=== PATIENT | male | born 1965 | race American Indian/Alaskan Native ===

== ENCOUNTER 2016-11-27 18:52 | Inpatient (IN) | payer OTHER ==
[~2016-11-27] VITALS: Ht 182.9 cm; Wt 87.4 kg
[~2016-11-27 18:52] MED LIST: FUROSEMIDE20 MG PO; FUROSEMIDE40 MG PO; HUMALOG100 UNITS/ SUB-Q; LISINOPRIL-HCT1 EACH PO; LOVASTATIN20 MG PO; MAG-OXIDE400 MG PO; METFORMIN HCL500 MG PO; METOPROLOL TART25 MG PO; MIDODRINE HCL10 MG PO; NITROGLYCERIN0.4 MG SL; POTASSIUM CHLO20 ME1 PO; SODIUM BICARBO650 MG PO; SPIRONOLACTONE100 MG PO; SPIRONOLACTONE50 MG PO; VIAGRA50 MG PO; XIFAXAN550 MG PO
--- NOTE | 2016-11-28 05:34 | NUR ---
PT AWAKE VS SLEEPING, A/O X3, APPEARS TIRED, SLEPT INTERMITTENTLY. VS WNL, AFEBRILE, RA, LUNGS CLEAR DIMINISHED, LACTIC ACID IMPROVING, CLARIFIED NSS MVI TO INFUSE INCLUDING WHEN BANANA BAG IS INFUSING, GUIAC NEGATIVE. ABD ASCITES REMARKABLE, VESSELS VISIBLE AND UMBILICAL HERNIA. FC IRRIGATED WITH 30 ML NSS AND IS DRAINING DARK, MAN, CLEAR URINE, 400 ML SINCE 0. PT TOLERATING DISCOMFORTS, ABD CRAMPS PERIODICALLY. LARGE, BROWN, FORMED BM IN BSC, 1 PERSON ASSIST, PT REQUIRES WALKER TO STAND AND MANUEVER TO BSC, USES CALL LIGHT. PT LIVES WITH A WOMAN WHO WILL BE BRINGING HIS MEDS IN A.M., INCLUDING XIFAXAN, CEFEPIME AND FLAGYL IV SCHEDULED.
--- NOTE | 2016-11-28 06:34 | NUR ---
DR BLACKWOOD CALLED AND NOTIFIED OF CRITICAL VALUES, TROPONIN AND LACTIC ACID
--- NOTE | 2016-11-28 06:51 | EKG ---
[facility] [address] [facility] [place] [address] Signed Supraventricular tachycardia Inferior infarct , age undetermined ST \T\ T wave abnormality, consider anterolateral ischemia Abnormal ECG When compared with ECG of 14-JUN-2016 18:14, PA interval has decreased Non-specific change in ST segment in Inferior leads T wave inversion now evident in Inferior leads T wave inversion now evident in Lateral leads Confirmed by KATE BLACKWOOD MD ([id number]) on 11/28/2016 6:51:21 AM Electronically Signed By: KATE BLACKWOOD MD 11/28/16 0651 PATIENT NAME: YAMILA HAUSER Electrocardiogram DATE OF : 63 PHYSICIAN: KATE BLACKWOOD MD REPORT #: [id number] REPORT IS CONFIDENTIAL AND NOT TO BE RELEASED WITHOUT AUTHORIZATION
--- NOTE | 2016-11-28 07:38 | NUR ---
CRITICAL LAB VALUE OF TROPONIN 0.311 AND LACTIC ACID DECREASED TO 3.7.
--- NOTE | 2016-11-28 07:56 | NUR ---
IV SITES INTACT, NO REDNESS OR SWELLING NOTED, PT DENIES PAIN AT EITHER SITE. PT DENIES SOB. PT APPEARS SOMULANT, IS SLOW TO RESPOND TO DIRECT QUESTIONS.
--- NOTE | 2016-11-28 09:01 | NUR ---
PT UP TO BEDSIDE COMMODE WITH ONE PERSON ASSIST AND WALKER. PT HAD EXTRA LARGE LOOSE BM. PT ASSISTED BACK TO BED. PT STATES "I CAN'T EVEN WIPE MYSELF, I'M SO WEAK". PT APPEARS WITHDRAWN.
--- NOTE | 2016-11-28 09:18 | NUR ---
PT STOOL GUAIAC POSITIVE. HAS BEEN NOTIFIED. NO FURTHER ORDERS AT THIS TIME.
--- NOTE | 2016-11-28 10:07 | NUR ---
IV SITE IN RT HAND DC'D DUE TO LEAKING AND SLOW FLUSH.
--- NOTE | 2016-11-28 10:26 | NUR ---
PT IN SHOWER WITH FULL ASSIST FROM POWER SWITCHBOARD OPERATOR. PT WHEELED TO SHOWER IN CHAIR.
--- NOTE | 2016-11-28 10:53 | NUR ---
PT BACK TO BED FROM SHOWER, PT ABLE TO BRUSH TEETH WITH ASSISTANCE. PT REQUIRES TWO PERSON ASSIST BACK TO BED W/O WALKER.
--- NOTE | 2016-11-28 10:57 | NUR ---
PT STATES HE FEELS BETTER TODAY THAN HE DID YESTERDAY.
--- NOTE | 2016-11-28 11:20 | NUR ---
20 G IV SITE STARTED IN PT RT FORARM, PT CHERRI WELL.
--- NOTE | 2016-11-28 12:35 | NUR ---
PT REPOSITIONED UP IN BED FOR COMFORT. IV SITES INTACT NO SWELLING OR REDNESS NOTED, PT DENIES PAIN WITH INFUSION. PT SITTING UP IN BED EATING CLEAR LIQUID TRAY.
[2016-11-28] MEDS ORDERED: CONSTULOSE10 GM/15 M PO (12:47)
[2016-11-28] MEDS ORDERED: LEVEMIR FL100 UNIT/2 INJ (12:47)
[2016-11-28] MEDS ORDERED: PANTOPRAZOLE SO40 MG PO (12:47)
--- NOTE | 2016-11-28 12:52 | NUR ---
MED REC COMPLETE
--- NOTE | 2016-11-28 13:45 | NUR ---
PT TALKING ON PHONE TO HIS DAUGHTER. WILL CHECK BACK LATER
--- NOTE | 2016-11-28 14:10 | NUR ---
CALLED TO REPORT PT CONTINUED LOW URINE OUTPUT. ORDER GIVEN TO IRRIGATE JARAMILLO.
--- NOTE | 2016-11-28 14:30 | NUR ---
JARAMILLO IRRIGATED WITH 30 ML NS. PT INCONTINENT OF LARGE AMOUNT OF LIQUID STOOL. ENTIRE BED CHANGE AND GOWN CHANGE REQUIRED.
--- NOTE | 2016-11-28 14:45 | NUR ---
IV FLUIDS CHANGED FROM 200 ML/HR TO 75 ML/HR PER UPDATED ORDER.
--- NOTE | 2016-11-28 16:15 | NUR ---
IV SITES INTACT, NO REDNESS OR SWELLING NOTED, FLUIDS INFUSING EASILY. PT AWAKE AND ALERT, QUITE LAYING IN BED WATCHING TV. PT DENIES SOB, PAIN AND NAUSEA AT THIS TIME. PT GIVEN INCENTIVE SPIROMETER AND EDUCATED ON APPROPRIATE USE.
--- NOTE | 2016-11-28 17:55 | NUR ---
GAVE PT 5 UNITS INSULIN FOR COVERAGE OF BLOOD GLUCOSE OF 228. PT CHERRI WELL.
--- NOTE | 2016-11-28 18:32 | NUR ---
PT SITTING UP IN BED DRINKING A CLEAR ENSURE.
--- NOTE | 2016-11-28 19:36 | NUR ---
PT'S UO DECREASED TODAY, REPORTED RESULTS TO DR. BLACKWOOD, PRESENT IN UNIT.
--- NOTE | 2016-11-28 20:28 | NUR ---
1940 - PT SLEEPING, ROUSES EASILY, NO ACUTE DISTRESS.
--- NOTE | 2016-11-28 22:12 | NUR ---
PT HAS PAIN R/T ASCITES PRESSURE, DOES NOT GIVE A PAIN SCORE, DESCRIBES HEARTBURN, / NOC DESCRIBED INTERMITTENT CRAMP WHICH PT CONTINUES TO HAVE. PROTONIX GIVEN IV A.M., LEADS VIEWED ON MONITOR, QRS .10-.11, PT SAID HE HAS HAD THE PAIN FOR 2 DAYS, ALERTED DR. BLACKWOOD. ASCITES.
--- NOTE | 2016-11-29 01:33 | NUR ---
PT SLEEPING, CEFEPIME INFUSED, BRIEF CHECK LARGE GREEN LIQUID STOOL. GUIAC NEGATIVE. PT HAS ABDOOMINAL PAIN INTERMITTENT, DOES NOT GIVE A PAIN NUMBER, ABLE TO SLEEP, DOING OK PER CONVERSATION.
--- NOTE | 2016-11-29 04:15 | NUR ---
PT SLEEPING FOR SEVERAL HOURS, VS WNL, UO MAN MEDIUM/DARK, DECREASED, DR. BLACKWOOD AWARE PER NURSE'S NOTE AT START OF SHIFT. LOOSE STOOLS, INCONTINENT, GUIAC NEGATIVE. PT DOES NOT WANT LACTULOSE EVENING DOSE. LOW GRADE TEMP 99.4.
--- NOTE | 2016-11-29 07:17 | NUR ---
PT SLEPT, AWAKE, VS WNL, ORDERED BREAKFAST.
--- NOTE | 2016-11-29 08:55 | NUR ---
BOTH IV SITES INTACT, NO REDNESS OR SWELLING NOTE, PT DENIES PAIN WITH FLUSH OR INFUSION. PT DENIES PAIN, NAUSEA, AND SOB IN GENERAL. DIET ADVANCED TO REGULAR, PT EXCITED TO EAT "ANYTHING BESIDES JELLO AND BROTH". PT HAS A FLAT AFFECT, APPEARS TO BE NORMAL FOR HIM, INTERACTS WELL. PT IS COOPERATIVE AND POLITE. VITALS WNL AT THIS TIME. URINE OUTPUT REMAINS LOW, IS AWARE. LASIX ORDERED FOR THIS AM.
--- NOTE | 2016-11-29 11:07 | NUR ---
PT LAYING IN BED WATCHING TV AWAKE AND ALERT X4. PT DENIES OTHER NEEDS AT THIS TIME. CALL LIGHT WITHIN REACH. PT VITALS WNL.
--- NOTE | 2016-11-29 13:26 | NUR ---
PT UP TO SHOWER IN SHOWER CHAIR. PT ABLE TO STAND AND PIVOT TO GET IN AND OUT OF BED. PT ABLE TO ASSIST WITH CLEANING HIM SELF IN THE SHOWER. PT HAIR SHAMPOOED TWICE, MEDIMUM SIZE SCAB LIKE CLUMPS OF SKIN ABLE TO BE COMBED OFF OF SCALP. PT DENIES PAIN WITH SKIN CHUNKS COMING OFF, PT DENIES ANY PAIN ON SCALP. PT INCONTINENT OF LIQUID STOOL DURING SHOWER. PT DRIED, NEW SOCKS AND GOWN PLACED. BED LINNENS CHANGED. PT BACK TO BED. PT SHAVING HIM SELF IN BED WITH RAZORS AND SHAVING CREAM.
--- NOTE | 2016-11-29 13:42 | NUR ---
iv sites intact, no redness or swelling noted, both sites flush easily, pt denies pain at either site.
--- NOTE | 2016-11-29 14:44 | NUR ---
FULL REPORT GIVEN TO MARGARET SHIN ON MED/SURG FLOOR, ALL QUESTIONS ANSWERED, PT TO BE TRANSFERED TO ROOM 123 .
--- NOTE | 2016-11-29 19:20 | NUR ---
BEDSIDE REPORT RECEIVED FROM OFFGOING NURSE. PT LYING IN BED WITH EYES CLOSED, WAKES EASILY. PT DENIES NEEDS AT THIS TIME. CALL LIGHT WITHIN REACH.
--- NOTE | 2016-11-29 21:30 | NUR ---
PT ASSESSMENT COMPLETED. PT RATES PAIN 8/10 TO ABD. REPORTS MILD SOB. SA02 99%, LUNGS CLEAR/DIM IN BASES. ABD SEVERLY DISTENDED. BT'S ACTIVE. PT REPORTS TENDERNESS UPON ABD PALPATION. PT DECLINES TO TAKE LACTULOSE. STATES "IT IS TOO LATE".
--- NOTE | 2016-11-29 23:00 | NUR ---
HOSPITALIST NOTIFIED OF LOW URINE OUTPUT, INCREASED PAIN, AND SOB. NO NEW ORDERS RECEIVED AT THIS TIME. PT LYING IN BED WITH EYES CLOSED. WAKES EASILY DUE TO IV ALARM. PT REPORTS THAT PAIN CONTINUES 8-11/30. PT DENIES NEEDS AT THIS TIME. CALL LIGHT WITHIN REACH.
--- NOTE | 2016-11-30 00:31 | NUR ---
PT INQUIRING ABOUT PAIN MEDICATION, EXPLAINED TO PT THAT MD DID NOT ORDER PAIN MEDICATION, BUT HOPES PT WILL HAVE PARACENTESIS TOMORROW PER EARLIER CONVERSATION WITH MD. PT STATES AGREEMENT. DENIES FURTHER NEEDS AT THIS TIME. CALL LIGHT WITHIN REACH.
--- NOTE | 2016-11-30 01:37 | NUR ---
PT RESTING WITH EYES CLOSED. RESPIRATIONS EVEN AND UNLABORED. PT DOES NOT WAKE UP TO IV PUMP ALARMING OR SUPERINTENDENT DRILLING AND PRODUCTION ENTERING ROOM. CALL LIGHT WITHIN PT REACH.
--- NOTE | 2016-11-30 02:20 | NUR ---
PT ASSESSMENT COMPLETE. PT RESTING WITH EYES CLOSED. WAKES EASILY. PT RATES PAIN 8-9/10, UNCHANGED FROM PREVIOUS. CONTINUES TO REPORT SOB, LUNG SOUNDS CLEAR THROUGHOUT. ABD SEVERLY DISTENDED AND FIRM, REMAINS TENDER TO PALPATION. BT'S ACTIVE. PT DENIES FURTHER NEEDS. CALL LIGHT WITHIN REACH.
--- NOTE | 2016-11-30 04:54 | NUR ---
PT RESTING IN BED WITH EYES CLOSED. RESPIRATIONS EVEN AND UNLABORED. PT APPEARS TO BE SLEEPING. CALL LIGHT WITHIN REACH.
--- NOTE | 2016-11-30 05:47 | NUR ---
PT RESTING OFF AND ON THIS SHIFT. NOTIFIED OF 10/30 PAIN, NO NEW ORDERS RECEIVED. ABD SEVERELY DISTENDED. UMBILICAL HERNIA PROTUDING. BT'S ACTIVE. ABD TENDER. PT REPORTS SLIGHT SOB. TELE # 1O, SR, HR 90'S. JARAMILLO CATH WITH LOW UO, NOTIFIED. SKIN JAUNDICED. PT REFUSED EVENING LACTULOSE. BM X 3 YESTERDAY. POSSIBLE PARACENTESIS TODAY. IV SL.
--- NOTE | 2016-11-30 06:44 | NUR ---
PT LYING IN AWAKE IN BED. REPORTS THAT PAIN IS UNCHANGED, CONTINUES AT 8/10. URINE OUTPUT CONTINUES TO BE LOW PREVIOUSLY REPORT TO MD THIS SHIFT. PT DENIES NEEDS AT THIS TIME. CALL LIGHT WITHIN REACH.
--- NOTE | 2016-11-30 07:30 | NUR ---
PT RESTING IN BED ALERT AND ORIENTED. BEDSIDE REPORT.
--- NOTE | 2016-11-30 08:45 | NUR ---
PT HAS FLAT AFFECT, ANSWERS QUESTIONS APPROPRIATLY, DOES NOT ENGAGE IN CONVERSATION. HE REPORTS PAIN 8-9/10, TRAMADOL ADMINISTERED. COOPERATIVE WITH PLAN OF CARE
--- NOTE | 2016-11-30 12:15 | OR ---
[facility] [address] [place], [place] [address] Signed DATE OF PROCEDURE: 11/27/16 PREOPERATIVE DIAGNOSES Fever, elevated white count, cirrhosis with ascites, assess for spontaneous bacterial peritonitis. POSTOPERATIVE DIAGNOSES Fever, elevated white count, cirrhosis with ascites, assess for spontaneous bacterial peritonitis. PROCEDURE: Right lateral abdominal wall paracentesis. SURGEON: aCnelo Ayala MD ANESTHESIA: Lidocaine 1% with epinephrine. INDICATION A 51-year-old man with end-stage liver disease and profound ascites with elevated white count, fever, and concerns for possible spontaneous bacterial peritonitis. He understands risks of paracentesis for diagnosis including but not limited to bleeding, infection, bowel injury, and other unforeseen complications. Understanding this, he wished to proceed. FINDINGS Somewhat turbid yellow ascites fluid was obtained from the right lower abdominal area. SPECIMEN: Sent for Gram stain and culture. PROCEDURE IN DETAIL In the supine position, right lateral lower abdominal wall was prepared with a Chlorhexidine solution and draped sterilely. A 1% Lidocaine with epinephrine was injected locally. Using a paracentesis needle, the peritoneal cavity was carefully entered allowing for egress of ascites fluid which was under pressure. A 60 mL syringe of fluid was obtained. It was somewhat turbid, it was not bloody. The needle was removed and a Band-Aid was applied. He tolerated procedure well. Canelo Ayala MD Electronically Signed By: CANELO AYALA MD 11/30/16 1215 PATIENT NAME: YAMILA HAUSER OPERATIVE REPORT DATE OF : 63 PHYSICIAN: CANELO AYALA MD REPORT #: [id number] REPORT IS CONFIDENTIAL AND NOT TO BE RELEASED WITHOUT AUTHORIZATION [facility] [address] [place], [place] [address] Signed JOLANTA/Aishwarya /[id number] cc: MD Shahid Moran MD Kelly Pridgen, MD Electronically Signed By: CANELO AYALA MD 11/30/16 1215 PATIENT NAME: YAMILA HAUSER OPERATIVE REPORT DATE OF : 63 PHYSICIAN: CANELO AYALA MD REPORT #: [id number] REPORT IS CONFIDENTIAL AND NOT TO BE RELEASED WITHOUT AUTHORIZATION
--- NOTE | 2016-11-30 12:15 | CONS ---
[facility] [address] [facility] [place], [place] [address] Signed DATE OF CONSULTATION: 11/27/16 CONSULTING PHYSICIAN: Canelo Ayala MD REQUESTING PHYSICIAN: Dr. Caldwell and Orin Garland. PROBLEM Probable infection, known end-stage liver disease with ascites, consideration for spontaneous bacterial peritonitis. HISTORY OF PRESENT ILLNESS This 51-year-old [place] man has end-stage liver disease and is known to me from the past having undergone paracentesis. He is known to have an umbilical hernia without known complication or symptoms and presented to the emergency room feeling poorly. He is noted to have elevated white count and temperature and thought to have infection of unknown source. A CT scan of the abdomen was performed which showed considerable amount of ascites, no sign of free air or other particular problem. The patient has not been delirious and is of clear mind. He says he has vague abdominal pain, but no particular other complaint. He does not have a persistent cough or other similar problem. Consideration has been made for paracentesis for diagnosis to assess for spontaneous bacterial peritonitis and I am consulted on that basis. PHYSICAL EXAMINATION GENERAL: A deeply jaundiced [place] man who is alert and oriented. He shows no sign of delirium. He has no asterixis. HEENT: Trachea is midline. He has no hoarseness. There is no jugular venous distention. CHEST: Shows no evidence of tachypnea. HEART: Shows no tachycardia. ABDOMEN: Markedly distended consistent with ascites. There is a sizable umbilical hernia without erosion or leakage. EXTREMITIES: Show wasting, but no peripheral edema. LABORATORY DATA: Shows a protime elevated at 2.4. ASSESSMENT AND PLAN The patient has ascites and reasonably high probability of spontaneous bacterial peritonitis. Although, his protime is elevated, I think he can safely undergo paracentesis for diagnosis. He is not symptomatic from his ascites necessarily and therefore large volume paracentesis is not really indicated. I have conferred with Dr. Garland and Dr. Caldwell on this, they wished that he undergo paracentesis if possible. Electronically Signed By: CANELO AYALA MD 11/30/16 1215 PATIENT NAME: YAMILA HAUSER CONSULTATION DATE OF : 63 PHYSICIAN: CANELO AYALA MD REPORT #: [id number] REPORT IS CONFIDENTIAL AND NOT TO BE RELEASED WITHOUT AUTHORIZATION [facility] [address] [place] [id number] Signed I discussed with the patient the risks of bleeding, infection, bowel injury, and other unforeseen complications related to paracentesis. He understands and wished to proceed. MD JOLANTA Stovall/Aishwarya /[id number] cc: Orin Garland MD [facility] Electronically Signed By: CANELO AYALA MD 11/30/16 1215 PATIENT NAME: YAMILA HAUSER CONSULTATION DATE OF : 63 PHYSICIAN: CANELO AYALA MD REPORT #: [id number] REPORT IS CONFIDENTIAL AND NOT TO BE RELEASED WITHOUT AUTHORIZATION
--- NOTE | 2016-11-30 12:37 | NUR ---
PT CONSUMED ALL OF SMALL PLATE OF FRUIT AND HALF ENSURE. HE REPORTS FEELING PAINFUL AND UNCOMFORTABLE DUE TO ACSITES, PT REPORTS TRAMADOL ADMINISTERED EARILER WAS HELPFUL. PT REUQEST TO KNOW WHEN HE MAY HAVE PROCEDURE TO DRAIN FLUIDS OFF ABD. RN CALLED MD AND RELAYED INFORMATIN THAT THE MD HOPES IT WILL BE THIS AFTERNOON, PER SURGEONS SCHEDULE.
--- NOTE | 2016-11-30 15:22 | NUR ---
Patient is doing "okay". Resting, said he did not need anything.
--- NOTE | 2016-11-30 17:20 | NUR ---
CALLED TO UPDATE HER ON PT CONTINUED PAIN OF 8-10/10 DESPITE ULTRAM ADMINISTRATION. UPDATED HER TO HIS REACTION WHEN HE WAS NOTIFIED THAT PROCEDURE WILL LIKELY BE IN THE MORNING, PT WAS HOPEING FOR THE PROCEDURE TODAY. HE IS ANTICIPATING SOME RELIEF FROM THE PAIN. PLAN IS FOR TO SEE PT TOMORROW.
--- NOTE | 2016-11-30 17:31 | NUR ---
PT HAS NOT WANTED TO GET OUT OF BED OVER SHIFT, REFUSED SHOWER. ULTRAM FOR PAIN WAS ORDERED THIS AM, PT HAS HAD TWO DOSES. HE HAS BEEN ALERT AND ORIENTED OVER SHIFT, ONE LARGE LIQUID BM, INCONT. IN BED. PT ABD. SEVERELY DISTENDED, PLAN FOR PARACENTESIS FOR TOMORROW WITH . URINE OUT HAS BEEN LOW, AWARE,JARAMILLO IN PLACE. PT HAS HAD SMALL AMOUNTS OF NUTRITIONAL INTAKE WELL ENSURES WITH MEALS. HE HAS FLAT AFFECT/STOIC.
--- NOTE | 2016-11-30 19:25 | NUR ---
RECEIVED REPORT FROM RN. PATIENT HAS NO NEEDS AT THIS TIME.
--- NOTE | 2016-11-30 20:13 | NUR ---
EVENING MEDICATION GIVEN AND ASSESSMENT DONE. PATIENT HAS NO NEEDS AT THIS TIME. HE IS HOPEFUL ABOUT PARACENTESIS TOMORROW.
--- NOTE | 2016-12-01 01:34 | NUR ---
PATIENT GIVEN MORE WATER. HAS NO OTHER NEEDS AT THIS TIME.
--- NOTE | 2016-12-01 03:07 | NUR ---
PATIENT REPORTS 6/10 ABD PAIN. PAIN MEDICATION GIVEN PER EMAR. NO OTHER NEEDS AT THIS TIME.
--- NOTE | 2016-12-01 04:42 | NUR ---
PATIENT SITTING UP IN BED WATCHING TV. DENIES NEEDS AT THIS TIME.
--- NOTE | 2016-12-01 06:07 | NUR ---
PATIENT HAS BEEN SLEEPING THROUGHOUT SHIFT. VSS, NO COMPLAINTS OF NAUSEA. PATIENT REPORTED 8/10 ABD PAIN, PAIN MEDICATION GIVEN PER EMAR. PATIENT STATED THAT HE HAD ADEQUATE PAIN RELIEF. LOW URINE OUTPUT NOTED AT 200 ML THROUGHOUT SHIFT: DR. BLACKWOOD HAS BEEN MADE AWARE OF THE LOW URINE OUTPUT. THERE ARE NO NEW ORDERS AT THIS TIME. NO OTHER ACUTE CHANGES FROM BEGINNING OF SHIFT ASSESSMENT. INTENTIONAL ROUNDING DONE WITH ALL PATIENT'S NEEDS MET.
--- NOTE | 2016-12-01 06:16 | NUR ---
SPOKE WITH DR. BLACKWOOD ABOUT LOW URINE OUTPUT. NO NEW ORDERS AT THIS TIME.
--- NOTE | 2016-12-01 08:15 | NUR ---
PT AWAKE IN BED. VERY FLAT AFFECT, PT NOT VERY TALKATIVE BUT RESPONDS APPROPRIATELY TO QUESTIONS. DENIES PAIN OR NAUSEA AT THIS TIME. PT EATING BREAKFAST, CHERRI WELL ALTHOUGH STATES HE DOESNT HAVE MUCH OF AN APPETITE. IV FLUSHES WELL. CALL LIGHT WITHIN REACH.
--- NOTE | 2016-12-01 11:33 | NUR ---
PT RESTING IN BED, EYES CLOSED, RESP EVEN AND UNLABORED.
--- NOTE | 2016-12-01 13:00 | NUR ---
PT RECIEVED THORACENTESIS BY DR. AYALA, 4L OF CLEAR YELLOW DRAINAGE OBTAINED. PT CHERRI WELL. ABD NOTABLY DECREASED IN SIZE. PT REPORTS FEELING MUCH BETTER AND WOULD LIKE TO ORDER SOMETHING FOR LUNCH. DENIES PAIN OR OTHER CONCERNS AT THIS TIME. LINENS AND ATTENDS CHANGE. CALL LIGHT WITHIN REACH.
--- NOTE | 2016-12-01 14:22 | NUR ---
I ORDERED PATIENT ANOTHER ICE TEA.
--- NOTE | 2016-12-01 15:28 | NUR ---
PT AMB 2PERSON WITH WALKER IN HALLWAY. CURRENTLY SITTING UP IN CHAIR WATCHING TV. ATE ALL OF LUNCH. DENIES PAIN OR OTHER CONCERNS. DRESSING FROM PARACENTESIS SITE REDRESSED IT WAS COMPLETETELY SATURATED WITH LIGHT YELLOW DRAINAGE. REDRESSED WITH 4X4 GAUZE AND MICROFOAM TAPE. CALL LIGHT WITHIN REACH.
--- NOTE | 2016-12-01 15:47 | NUR ---
PT SITTING UP IN RECLINER. MORE ENGAGED IN CONVERSATION TODAY. HE REPORTS PAIN 5/10. TRAMADOL 50MG ADMINISTERED PO PRN.
--- NOTE | 2016-12-01 15:53 | NUR ---
PT SITTING UP IN BED, NOT VERY ALERT OR ORIENTED. DID NOT SEEM TO WANT ME TO CONNECT WITH HIM-STATED HE WAS TIRED. I HONORED HIS REQUEST, WILL CHECK BACK AGAIN
--- NOTE | 2016-12-01 17:48 | NUR ---
PT HAD PARACENTESIS THIS AFTERNOON 4L REMOVED FROM ABDOMEN. PT REPORTS HE FEELS MUCH BETTER POST PROCEDURE. HE HAS BEEN ADVANCED TO REGULAR DIET 2 GRAM SODIUM RESTRICITON. HE HAS BEEN UP WITH PHYSICAL THERAPY TODAY TWO PERSON ASSIST WITH FWW, PT WAS VERY UNSTEADY. HE HAS BEEN MORE ENGAGED IN CONVERSATION SINCE PARACENTESIS WELL. ULTRAM 5OMG PO PRN GIVEN ONCE THIS AFTERNOON FOR ABD. PAIN.
--- NOTE | 2016-12-01 19:42 | NUR ---
RECIEVED REPORT FROM DAY SHIFT NURSE. PT RESTING IN BED. DIET SODA DELIVERED AND WARM BLANKET. PT DENIES FURTHER NEEDS. CALL POON IN REACH.
--- NOTE | 2016-12-01 21:33 | NUR ---
PT RESTING IN BED. PARACENTESIS SITE LEAKING LARGE AMOUNT OF SEROUS FLUID. DRESSING WAS SATURATED WELL HIS GOWN. GOWN AND BED LINEN CHANGED. NEW DRESSING APPLIED (GAUZE FLUFF, ABD PAD, FOAM TAPE). PT DENIES PAIN AT THIS TIME. PT REFUSED LACTULOSE, STATES HE "WOULD LIKE TO SLEEP TONIGHT." DENIES FURTHER NEEDS.
--- NOTE | 2016-12-01 23:29 | NUR ---
PT SLEEPING. ABX INFUSING. CALL POON IN REACH.
--- NOTE | 2016-12-02 01:10 | NUR ---
PT RESTING. PARACENTESIS DRESSING CHANGED. DRESSING WAS SATURATED AGAIN. BOOSTED PT UP IN BED. HOT TEA DELIVERED. PT DENIES FURTHER NEEDS. ABX INFUSING. CALL POON IN REACH.
--- NOTE | 2016-12-02 03:00 | NUR ---
PT RESTING IN BED. CHANGED WOUND DRESSING. DRESSING WAS SATURATED ONCE AGAIN HOWEVER IT DID NOT LEAK THROUGH THE DRESSING ONTO HIS GOWN. PT DENIES PAIN. CALL POON IN REACH.
--- NOTE | 2016-12-02 06:31 | NUR ---
PT HAD A FAIR NIGHT. I HAD TO WAKE HIM UP ALMOST EVERY 2 HOURS TO CHANGE HIS DRESSING ON THE PARACENTESIS SITE. DRAINING LARGE AMOUNTS OF SEROUS FLUID. BULKY DRESSING WITH ABD SECURED WITH KERLEX TAPE. FOAM TAPE REMOVAL CAUSED SMALL ABRASION. APPLIED BARRIER CREAM TO ABRASION AND DID NOT COVER WITH TAPE. NO C/O PAIN LAST NIGHT. PITTING EDEMA NOTED IN BLE, ELEVATED ON PILLOW. PT REQUESTED FOR SCDS. JARAMILLO INTACT. NO ACUTE CHANGES.
--- NOTE | 2016-12-02 08:29 | NUR ---
PT HAD EMESIS WITH BREAKFAST, HAS WHEEZES NOW, NOTIFIED THAT PT MAY HAVE ASPIRATED. ZOFRAN 4MG IV ALSO GIVEN. ASSESSMENT PT NOW HAS WHEEZES IN BILAT UPPER LUNG PLUNKETT. NEB TX ORDER PRN
--- NOTE | 2016-12-02 08:42 | NUR ---
WHEEZES IMPROVED WITH NEB TX
--- NOTE | 2016-12-02 10:05 | NUR ---
PT IS SITTING UP IN BED WITH CALL LIGHT IN REACH. PT SAID HE DOES NOT FEEL NAUSEOUS ANYMORE BUT FEEL LIKE SOMETHING IS STUCK IN HIS THROAT. PT DID NOT NEED ANYHTING AT THE MOMENT
--- NOTE | 2016-12-02 10:46 | NUR ---
FAXED CHART NOTES TO [facility] INCLUDING FACESHEET, ER NOTES, H AND P, PROG NOTES, CONSULT, OP NOTES, IMAGING, MEDS, LABS AND PT EVAL.
--- NOTE | 2016-12-02 10:58 | NUR ---
ILEOSTOMY APPLIANCE PLACED OVER SITE OF PARACENTESIS DUE TO COPIOUS AMOUNTS OF DRAINAGE AND DAMAGE TO SKIN FROM TAPE ON/OFF FOR DRESSING CHANGES EVERY [address] BLACKWOOD GAVE OK TO TRY THIS METHOD.
--- NOTE | 2016-12-02 13:34 | NUR ---
CALLED TO NOTIFY HER OF PT HR IN 140'S BPM SUSTAINED FOR THE LAST 5MIN PLUS, SHE SAID LONG IT STAYS IN NSR WE WILL MONITOR AND TRANSFUSE BLOOD WHEN AVAILABLE
--- NOTE | 2016-12-02 14:37 | NUR ---
PT IS SITTING UP IN BED WATCHING TV, CALL LIGHT IN REACH. PT DID NOT NEED ANYTHING AT THE MOMENT
--- NOTE | 2016-12-02 14:54 | NUR ---
PATIENT AWAKE IN BED. CHANGED GOWN CLEANED HIM UP. CHANGED DRESSING ON HIS RIGHT SIDE.
--- NOTE | 2016-12-02 15:15 | OR ---
[facility] [address] [facility] [place], [place] [address] Signed DATE OF PROCEDURE: 12/01/16 PREOPERATIVE DIAGNOSIS Intractable end-stage cirrhosis with symptomatic ascites. POSTOPERATIVE DIAGNOSIS Intractable end-stage cirrhosis with symptomatic ascites. PROCEDURE: Right paracentesis (4 L). SURGEON: Canelo Ayala MD. ANESTHESIA: 1% Lidocaine. INDICATION This 51 yr old male was admitted on November 27, 2016,by Dr. Orin Garland with progressive jaundice, ascites, elevated pro-time, and findings suggestive of sepsis. A diagnostic paracentesis was performed by sd, but did not confirm findings of spontaneous bacterial peritonitis. The patient has had increasing symptoms related to the ascites and request is made for therapeutic paracentesis, 4 L in total is recommended by Dr. Garland. The risks of bleeding, infection, and other unforese en complications related to paracentesis were reviewed with the patient. He understands and wished to proceed. FINDINGS A 4 L of slightly turbid yellow ascites fluid was obtained. His abdominal ascites diminished quite markedly. It was not completely cleared and certainly he could have at least twice as much taken again were it hemodynamically reasonable. DESCRIPTION OF PROCEDURE In the supine position, the right lateral abdominal wall was prepared with a Chlorhexidine solution and draped sterilely. 1% Lidocaine was injected locally. Using a throug h the needle catheter system, the peritoneal cavity was encountered and aspiration not required as the ascites fluid was under tension. It was attached to a 3-way stopcock system allowing for drainage of 4 L of ascites type fluid. At conclusion, the kennedy ter was removed and a stack of 4 x 4 gauze and Microfoam tape applied as there was some amount of ascites leakage. He tolerated procedure well. Electronically Signed By: CANELO AYALA MD 12/02/16 1515 PATIENT NAME: YAMILA HAUSER OPERATIVE REPORT DATE OF : 63 PHYSICIAN: CANELO AYALA MD REPORT #: [id number] REPORT IS CONFIDENTIAL AND NOT TO BE RELEASED WITHOUT AUTHORIZATION [address] [address] Signed MD JOLANTA Stovall/Georgettel /[phone] cc: MD James Moran DO Electronically Signed By: CANELO AYALA MD 12/02/16 1515 PATIENT NAME: YAMILA HAUSER OPERATIVE REPORT DATE OF : 63 PHYSICIAN: CANELO AYALA MD REPORT #: [id number] REPORT IS CONFIDENTIAL AND NOT TO BE RELEASED WITHOUT AUTHORIZATION
--- NOTE | 2016-12-02 15:30 | NUR ---
CALLED DUE TO PT HR SUSTAINED 140'S BPM. ORDERED A 500ML BOLUS AT THIS TIME.
--- NOTE | 2016-12-02 15:49 | NUR ---
PT RESTING IN BED REPORTS NO NAUSEA. ORDERED DINNER. HAS NO FURTHER REQUESTS AT THIS TIME. NO SIGNS OR SYMPTOMS OF TRANSFUSION REACTION.
--- NOTE | 2016-12-02 17:53 | NUR ---
UPDATED ON PT CONDITION. V/S, WT., ASSESSMENTS. PT HAVED EMESIS. ZOFRAN GIVEN.
--- NOTE | 2016-12-02 18:14 | NUR ---
PT HAD TWO EMESIS, POSSIBLE ASPIRATION WITH THIS AM EMESIS, CLEARED WITH NEB TREATMENT, JACK LUND MD AWARE. PT HAS HAD COPIOUS AMOUNTS OF DRAINAGE FROM ABD. SITES OF PARACENTESIS, ILEOSTOMY BAG PLACED TO ONE SITE. PT HAS BEEN TACHYCARDIC THIS AFTERNOON 150'S IMPROVING SOME 130'S AT THIS TIME. 2 UNITS OF BLOOD AND 100ML OF ALBUMIN ADMINISTERED. HE HAS HAD TWO 500ML BOLUS THIS AFTERNOON. HE HAS BEEN COOPERATIVE WITH CARE PLAN OVER SHIFT. HAS HAD POOR APPETITE OVER SHIFT. HAS BEE UPDATED ON ALL PT CONCERNS.
--- NOTE | 2016-12-02 19:15 | NUR ---
SHIFT REPORT RECIEVED. PATIENT RESTING IN BED. EX LEFT ROOM, ASKED TO BE NOTIFIED IF ANY CHANGES. PATIENT HAS NO REQUEST AT THIS TIME. CALL LIGHT IN REACH.
--- NOTE | 2016-12-02 21:15 | NUR ---
DR NEFF IN TO SEE PT, RECIEVED ORDER TO GIVE METOPROLOL 2.5MG IV NOW. MEDICATION GIVEN. HRR-145. WILL RECHECK BP IN 15MIN.
--- NOTE | 2016-12-02 21:25 | NUR ---
DR NEFF ASKED FOR ME TO GIVE SECOND DOSE OF METOPROLOL 2.5MG IV NOW. HRR-130. MEDICATION GIVEN.
--- NOTE | 2016-12-02 21:45 | NUR ---
HRR-120, DR NEFF NOTIFIED. NOTED NEW ORDERS, MEDS GIVEN. PT IS RESTING COMFORTABLY, HS CARES DONE.
--- NOTE | 2016-12-02 22:00 | NUR ---
PT IS RESTING QUIETLY, EYES CLOSED, RESP EVEN AND UNLABORED. HRR-98.
--- NOTE | 2016-12-02 22:05 | EKG ---
[facility] [address] [facility] [place] [address] Signed Sinus tachycardia Abnormal ECG When compared with ECG of 27-NOV-2016 19:01, ST no longer depressed in Anterior leads T wave inversion no longer evident in Anterior leads Confirmed by JONNATHAN NEFF MD ([id number]) on 12/02/2016 10:05:39 PM Electronically Signed By: JONNATHAN NEFF MD 12/02/16 2205 PATIENT NAME: YAMILA HAUSER SUSAN Electrocardiogram DATE OF : 63 PHYSICIAN: JONNATHAN NEFF MD REPORT #: [id number] REPORT IS CONFIDENTIAL AND NOT TO BE RELEASED WITHOUT AUTHORIZATION
--- NOTE | 2016-12-02 23:30 | NUR ---
PATIENT RESTING IN BED. DENIES NEEDS AT THIS TIME. CALL LIGHT IN REACH.
--- NOTE | 2016-12-03 01:37 | NUR ---
TELE BATTERY CHANGED. PATIENT RESTING IN BED. DENIES NEEDS AT THIS TIME.
--- NOTE | 2016-12-03 02:10 | NUR ---
[facility] CARE PERFORMED. NEW BEDDING APPLIED. JARAMILLO CARE PROVIDED. NEW DRESSING APPLIED TO RLQ. PUNCTURE SITES CONTINUE TO WEEP. PATIENT DENIES PAIN AND NAUSEA. SCDS. CALL LIGHT IN REACH.
--- NOTE | 2016-12-03 03:47 | NUR ---
PATIENT HAD A LARGE BOWEL MOVEMENT. NURSE AND I CLEANED THE PATIENT AND CHANGED THE LINEN.
--- NOTE | 2016-12-03 03:55 | NUR ---
PATIENT HAS OSTOMY BAG COVERING PUNCTURE WOUND ON RLQ DUE TO CONSTANT LEAKING OF FLUID FROM THE SITE. 50MLS COLLECTED IN LAST 8 HOURS. FLUID IS SEROSANGUINOUS.
--- NOTE | 2016-12-03 05:00 | NUR ---
PATIENT RESTING. EYES CLOSED. RR 16. JARAMILLO DRAINING MAN COLORED URINE. SCDS IN PLACE.
--- NOTE | 2016-12-03 05:33 | NUR ---
PATIENT RESTED WELL THROUGHOUT NIGHT. DENIED PAIN AND NAUSEA. JARAMILLO IN PLACE, OUTPUT QS. TELE #10. DRESSINGS ON RLQ CHANGED X2. GLUCOSE CHECKS. LUNG SOUNDS CLEAR.
--- NOTE | 2016-12-03 06:41 | NUR ---
PATIENT AWAKE AND ALERT. [place] CARE PROVIDED. JARAMILLO IN PLACE. OPEN AREA OF SKIN ABOUT THE SIZE OF A ZAHRA IS BLOODY IN COCCYX AREA. BERRIER CREAM APPLIED. DRESSING ON RLQ CHANGED. DRAINAGE FROM PUNCTURE SITES IS MODERATE. DRAINAGE FROM ABBRASIONS IS MODERATE. PATIENT DENIES PAIN AND NAUSEA. SCDS IN PLACE. LUNG SOUNDS CLEAR, DIMINISHED IN BASES. CALL LIGHT WITHIN REACH.
--- NOTE | 2016-12-03 07:20 | NUR ---
REPORT RECIEVED FROM ALEIDA MARTINEZ. PT AWAKE AND QUIET. HAS OSTOMY BAG DRAINING FLUID FROM CENTISIS SITES. DENIES PAIN. STATES HE SLEPT OK. JARAM[place]O DRAINING DARK YELLOW URINE. REPORTS QS.
--- NOTE | 2016-12-03 07:30 | NUR ---
BEDSIDE REPORT RECEIVED FROM ALEIDA MARTINEZ, ASSUMED CARE. PT AWAKE IN BED. PT REQUESTING DIET 7UP, BROUGHT TO PT. PT GIVEN CALL LIGHT. HAS NO ADDITIONAL REQUESTS AT THIS TIME. WILL REASSESS.
--- NOTE | 2016-12-03 09:20 | NUR ---
IN PT ROOM, ASSESSMENT COMPLETE. ABDOMEN FIRM, NOT TENDER WITH PALPATION. PT NOT COMPLAINING OF ANY PAIN AT THIS TIME. JARAMILLO DRAINING CONCENTRATED URINE. PITTING ANKLE EDEMA 2+ NOTED BILATERALLY. SCD'S IN PLACE. PT LUNGS CLEAR. SEROSANGUINOUS DRAINAGE NOTED IN DRAINAGE BAG. WILL CONTINUE TO MONITOR.
--- NOTE | 2016-12-03 11:10 | NUR ---
ASSISTED PATIENT WITH SHAVE AND WASHED HANDS AND FACE. SITTING UP TO EAT WILL WASH UP MORE AFTER LUNCH.
--- NOTE | 2016-12-03 11:20 | NUR ---
IN PT ROOM TO CHECK ON PT. CONTROL PANEL TESTER IN ROOM TO PROVIDE AM CARE. DISCUSSED WITH PT POLICY FOR NOT PROVIDING TOE NAIL CARE DUE TO DIABETES, PT VERBALIZED UNDERSTANDING. TOOK PT ICED TEA. PT HAS NO ADDITIONAL REQUESTS AT THIS TIME. WILL CONTINUE TO MONITOR.
--- NOTE | 2016-12-03 12:26 | EKG ---
[facility] [address] [facility] [place] [address] Signed Supraventricular tachycardia Minimal voltage criteria for LVH, may be normal variant Nonspecific T wave abnormality Abnormal ECG When compared with ECG of 02-DEC-2016 15:48, (Unconfirmed) Criteria for Inferior infarct are no longer present Nonspecific T wave abnormality has replaced inverted T waves in Inferior leads Confirmed by JONNATHAN NEFF MD ([id number]) on 12/03/2016 12:25:57 PM Electronically Signed By: JONNATHAN NEFF MD 12/03/16 1226 PATIENT NAME: YAMILA HAUSER Electrocardiogram DATE OF : 63 PHYSICIAN: JONNATHAN NEFF MD REPORT #: [id number] REPORT IS CONFIDENTIAL AND NOT TO BE RELEASED WITHOUT AUTHORIZATION
--- NOTE | 2016-12-03 13:00 | NUR ---
PATIENT BRUSHING TEETH. NO OTHER NEEDS AT THIS TIME.
--- NOTE | 2016-12-03 13:25 | NUR ---
DR. NEFF IN PT'S ROOM TO DISCUSS PLAN OF CARE, COMFORT CARE, PT'S PREFERENCE. DISCUSSED POSSIBLE COMFORT CARE AT [facility] FOR [facility].
--- NOTE | 2016-12-03 14:10 | NUR ---
D/C'D IV SITES PER DR. NEFF'S OKAY. PT CHERRI WELL, CATHETER TIPS INTACT. DISCUSSED PT'S THOUGHTS REGARDING CONVERSATION WITH DR. NEFF AND COMFORT CARE. PT TO GO TO [place] ON COMFORT CARE TOMORROW. PT STATES THAT HE FEELS "RELIEVED". TEO CONTINUE TO MONITOR PT, CALL LIGHT IN REACH.
[2016-12-03] MEDS ORDERED: LEVOFLOXACIN250 MG PO (15:11)
[2016-12-03] MEDS ORDERED: OXYCODONE HCL5 MG PO (15:17)
--- NOTE | 2016-12-03 16:15 | NUR ---
CHECKED ON PT. FROILAN KENNEY PROVIDING BED BATH FOR PT. WILL CONTINUE TO MONITOR.
--- NOTE | 2016-12-03 16:40 | NUR ---
FULL BED BATH DONE. KAITLYN, CATH CARE DONE. PATIENT RESTING IN BED. CALL BUTTON IN REACH. NO OTHER NEEDS AT THIS TIME.
--- NOTE | 2016-12-03 17:29 | NUR ---
ASSISTED PT TO REPOSITION IN BED FOR DINNER. CALLED KITCHEN FOR STEAK SAUCE. PT NOT REPORTING ANY NAUSEA OR PAIN AT THIS TIME.
--- NOTE | 2016-12-03 18:25 | NUR ---
PT CHANGED TO COMFORT CARE AFTER CONVERSATION BETWEEN DR. NEFF AND PT REGARDING TREATMENT OPTIONS WITH WORSENING KIDNEY FUNCTION, ASCITES. PT TO DISCHARGE TO [place] TOMORROW. PT HAS HAD TWO INCONTINENT, LIQUID BM. PT DENIES PAIN THROUGHOUT SHIFT. SKIN JAUNDICED, ABDOMEN FIRM. PT ALERT AND ORIENTED X3 AND IS ACCEPTING OF TRANSFER TO [place]. IV'S D/C'D THIS SHIFT PER .
--- NOTE | 2016-12-03 19:00 | NUR ---
RECEIVED REPORT AT 1900. FOUND PT IN BED WITH FAMILY AT BEDSIDE.
--- NOTE | 2016-12-03 23:13 | NUR ---
PT DENIES PAIN. ABD IS VERY DISTENDED AND PT SEEMS TO HAVE A UMBILICAL HERNIA. PT IS JAUNDICE IN EYES AND SKIN. V/S ARE WDL. SO FAR THIS SHIFT PT HAD BM X1. PT OVERALL IS WEAK.
--- NOTE | 2016-12-04 00:39 | NUR ---
PT IS SLEEPING AT THIS TIME.
--- NOTE | 2016-12-04 03:18 | NUR ---
PT IS AWAKE IN BED. PT DENIES PAIN.
--- NOTE | 2016-12-04 06:22 | NUR ---
PT OVERALL HAD AN UNEVENTFUL NIGHT. PT WAS CHANGED X2 DUE TO BM'S. PT DENIED PAIN ALL SHIFT. V/S ARE WDL. PT IS ALERT AND ORIENTED.
--- NOTE | 2016-12-04 09:00 | NUR ---
PATIENT UP SITTING UP IN BED EATING BREAKFAST. PAIN MEDICAITON RESOLVED PAIN, PATIENT STATES " I AM FEELING BETTER NOW" 2/10 ON PAIN SCALE. PATIENT REFUSED LACTOLOSE, REPORTED CONCERNS OF HAVING BM IN TRANSPORT TO [facility]. LUNG SOUNDS CRACKLES IN BASES. ABDOMEN FIRM AND ROUND. JARAMILLO INTACT DRAINING DARK YELLOW URINE.
--- NOTE | 2016-12-04 11:00 | NUR ---
FULL BODY ASSESMENT DONE. NO COMPLAINTS OF PAIN. PATIENT HAS FLAT AFFECT, BUT ANSWERING QUESTIONS APROPRIATLEY. UP IN ROOM. PATIENT NOW VISITING WITH PASTOR BANUELOS.
--- NOTE | 2016-12-04 11:29 | NUR ---
PT SITTING UP IN BED, ALERT AND ORIENTED. ALEIDA ROBLES REQUESTED I DELIVER SOME SODAS TO PT, WHICH I DID. GAVE ME AN OPENING FOR THE BEST CONVERSATION I HAVE HAD YET WITH PT. HE SHARED WITH ME HIS DAUGHTER IS COMING OUT TO SEE HIM FROM [place]. HE SEEMED PLEASED-HE MENTIONED THAT HE DOESN'T GET TO SEE HER MUCH ANY MORE. HE ALSO MENTIONED THAT HE DIDN'T SLEEP WELL. EXTENDED A BLESSING, WILL CONTINUE TO FOLLOW NEEDED
--- NOTE | 2016-12-04 12:24 | NUR ---
FAXED ORDERS AND PASRR TO [facility]. TALKED WITH DEDE REGARDING THIS.
--- NOTE | 2016-12-04 13:00 | NUR ---
PATIENT UP TO RECLINER, BATHED. TOLERATING ACTIVITY WELL. NOW WAITING FOR TRANSPORT TO [facility]. VS STABLE.
== END 2016-12-04 14:40 | disposition home or self-care (01) | DRG 871 ==
LOC: ED 18:52 → CCU 22:20 → MS 11-29 14:50
PROVIDERS: ADMIT Internal Medicine
PROC: 0W9G3ZZ Drainage of Peritoneal Cavity, Percutaneous Approach (ICD-10-PCS; principal; 2016-11-27)
PROC: 0W9G3ZZ Drainage of Peritoneal Cavity, Percutaneous Approach (ICD-10-PCS; 2016-12-01)
DX: A41.9 Sepsis, unspecified organism (principal); R65.21 Severe sepsis with septic shock; K76.7 Hepatorenal syndrome; K65.8 Other peritonitis; N17.9 Acute kidney failure, unspecified; D68.9 Coagulation defect, unspecified; I47.1 Supraventricular tachycardia; K70.11 Alcoholic hepatitis with ascites; F10.21 Alcohol dependence, in remission; I10 Essential (primary) hypertension; E11.9 Type 2 diabetes mellitus without complications; E78.5 Hyperlipidemia, unspecified; Z66 Do not resuscitate; Z51.5 Encounter for palliative care; K70.40 Alcoholic hepatic failure without coma; D63.8 Anemia in other chronic diseases classified elsewhere; D69.6 Thrombocytopenia, unspecified; K42.9 Umbilical hernia without obstruction or gangrene; E86.1 Hypovolemia; I44.0 Atrioventricular block, first degree; R34 Anuria and oliguria; B96.89 Other specified bacterial agents as the cause of diseases classified elsewhere; Z79.4 Long term (current) use of insulin; Z91.19 Patient's noncompliance with other medical treatment and regimen
CPT/HCPCS: 36415; 36430; 49082; 51702; 71010; 74176; 80048; 80053; 80076; 81001; 82010; 82140; 82570; 82800; 83605; 83735; 84134; 84300; 84484; 84540; 85025; 85610; 85730; 86850; 86900; 86901; 86920; 87040; 87070; 87075; 87077; 87186; 87205; 90674; 93005; 93010; 96361; 96365; 96375; 97116; 97161; 99285; G0008; G0480; J0153; J0692; J2405; J3411; J3475; J3480; J7030; J7060; J7120; P9016; P9047

== ENCOUNTER 2016-12-11 17:50 | Emergency (ER) | payer OTHER ==
[~2016-12-11] VITALS: Ht 182.9 cm; Wt 97.1 kg
[~2016-12-11 17:50] MED LIST changes: +CONSTULOSE10 GM/15 M PO; +LEVEMIR FL100 UNIT/2 INJ; +LEVOFLOXACIN250 MG PO; +OXYCODONE HCL5 MG PO; +PANTOPRAZOLE SO40 MG PO
== END 2016-12-11 22:28 | disposition short-term general hospital (02) ==
LOC: ED 17:50
DX: A41.9 Sepsis, unspecified organism (principal); R65.20 Severe sepsis without septic shock; K92.2 Gastrointestinal hemorrhage, unspecified; K72.90 Hepatic failure, unspecified without coma; I85.00 Esophageal varices without bleeding; I10 Essential (primary) hypertension; E11.9 Type 2 diabetes mellitus without complications; E78.5 Hyperlipidemia, unspecified; Z90.49 Acquired absence of other specified parts of digestive tract; Z79.899 Other long term (current) drug therapy
CPT/HCPCS: 36415; 51702; 71010; 80048; 80053; 81001; 83605; 84484; 85025; 85610; 85730; 86850; 86900; 86901; 87040; 87088; 96361; 96374; 96375; 96376; 99285; J2354; J2405; J2543; J7030